=== PATIENT | female | born 1945 | race Caucasian/White ===

== ENCOUNTER 2018-12-10 10:04 | Emergency (ER) | payer OTHER ==
[2018-12-10] MEDS: ONDANSETRON 4 MG INJ IV (10:44)
[2018-12-10] MEDS: SOD CHLORIDE 0.9% 1,000 ML IV (10:44)
[2018-12-10] MEDS: ACETAMINOPHEN 500 MG TAB PO (10:47)
== END 2018-12-10 12:01 | disposition home or self-care (01) ==
LOC: FTE 10:04
DX: R51 Headache (principal); F17.210 Nicotine dependence, cigarettes, uncomplicated
CPT/HCPCS: 96360; 99284-25